=== PATIENT | male | born 1950 | race Caucasian/White ===

== ENCOUNTER → 2023-01-20 14:22 | Outpatient (CLI) | payer MEDICARE, SELFPAY ==
--- NOTE | 2023-01-22 09:53 | DI.NM.S_ITS ---
DATE OF SERVICE:01/20/2023 PROCEDURE: Exercise treadmill stress test without imaging. ORDERING PROVIDER: Gaurav Myers MD INDICATIONS: The patient is a 72-year-old male with a history of atrial flutter and fatigue. FINDINGS: 1. The patient was able to exercise for 11 minutes and 23 seconds on a standard Sivakumar protocol, suggesting exceptional exercise capacity with an RUBEN of -60%, achieving 12.8 METS. 2. He had a normal heart rate response to exercise, achieving a maximum heart rate of 150 BPM (101% of his predicted maximum). He had a borderline hypertensive blood pressure response to exercise with a resting blood pressure of 118/78, increasing to a maximum of 200/98. 3. He had no chest discomfort or other anginal symptoms. 4. His resting ECG shows sinus rhythm with a left anterior fascicular block, but normal ST segments. With exercise, there are no significant ST-segment shifts or arrhythmias. IMPRESSION: 1. Normal exercise treadmill stress test for ischemia. 2. Exceptional exercise capacity without angina or arrhythmias. He had a borderline hypertensive blood pressure response to exercise. Shahriar Wiseman - VERONICA/rosalba/may doc#: [id number]/job#: [id number] dd: 01/20/2023 16:31:00 dt: 01/21/2023 02:24:00 DICTATING MD/COPIES TO: Delmar Peter MD; Gaurav Myers MD COPIES MNE: LYNSEY;
== END ==
PROVIDERS: PCP Student in an Organized Health Care Education/Training Program; Referring Provider Student in an Organized Health Care Education/Training Program; Visit Provider Student in an Organized Health Care Education/Training Program
DX: I48.3 Typical atrial flutter (principal); R53.83 Other fatigue
CPT/HCPCS: 93017

== ENCOUNTER → 2025-07-22 09:47 | Outpatient (CLI) | payer MEDICARE, SELFPAY ==
[2025-07-22 18:14] LABS: Add Manual Diff / Slide Review NO; Hematocrit 43.6 % (41-53); Hemoglobin 15.4 g/dL (13.5-17.5); Lymphocytes Absolute Auto 700 /uL (1100-4500); Mean Corpuscular HGB Conc 35.4 % (30-36); Mean Corpuscular Hemoglobin 33.7 PG (26-34); Mean Corpuscular Volume 95.1 fL (80-100); Platelet Count 230 X10^3/uL (150-400)
[2025-07-22 18:26] LABS: Alanine Aminotransferase 29 IU/L (<50); Albumin 4.4 g/dL (3.5-5.0); Albumin Globulin Ratio 1.6 (1.0-2.8); Alkaline Phosphatase 58 U/L (38-126); Blood Urea Nitrogen 12 mg/dL (9-20); Calcium 8.6 mg/dL (8.4-10.2); Carbon Dioxide 21 mmol/L (22-32); Chloride 107 mmol/L (98-107); Cholesterol 199 mg/dL (140-199); Estimated Glomerular Filt Rate > 60 mL/min (>60); Globulin 2.7 g/dL (1.7-4.1); Glucose 119 mg/dL (70-99); HDL Cholesterol 46 mg/dL (40-60); HEMOLYSIS 19 (0-50); Potassium 4.6 mmol/L (3.4-5.1); Sodium 137 mmol/L (137-145); Total Protein 7.1 g/dL (6.3-8.2); Triglycerides 135 mg/dL (35-150)
== END ==
PROVIDERS: PCP Family Medicine; Visit Provider Family Medicine
DX: Z13.1 Encounter for screening for diabetes mellitus (principal); Z13.6 Encounter for screening for cardiovascular disorders; Z12.5 Encounter for screening for malignant neoplasm of prostate; I48.0 Paroxysmal atrial fibrillation
CPT/HCPCS: 80053; 80061; 85025; G0103